=== PATIENT | female | born 1940 | race Caucasian/White ===

== ENCOUNTER 2021-02-15 16:02 | Emergency (ER) | payer MEDICARE, MEDICAID ==
[~2021-02-15] VITALS: Ht 160 cm; Wt 97.5 kg
[2021-02-15] MEDS ORDERED: METFORMIN HCL500 M3 PO (16:18)
[2021-02-15] MEDS ORDERED: HYDROCHLOROTH12.5 M1 PO (16:18)
[2021-02-15] MEDS ORDERED: NEURONTIN 300M300 M2 PO (16:18)
[2021-02-15] MEDS ORDERED: OMEPRAZOLE 20 M20 M1 PO (16:18)
[2021-02-15] MEDS ORDERED: LOTENSIN10 MG PO (16:19)
[2021-02-15] MEDS ORDERED: NAPROSYN500 M1 PO (16:19)
[2021-02-15 16:38] LABS: ABSOLUTE BASOPHILS 0.1 thou/uL (0.0-0.2); ABSOLUTE EOSINOPHILS 0.3 thou/uL (0.0-0.7); ABSOLUTE LYMPHOCYTES 1.8 thou/uL (0.8-5.3); ABSOLUTE MONOCYTES 0.8 thou/uL (0.0-1.2); ABSOLUTE NEUTROPHILS 4.4 thou/uL (1.6-8.1); BASOPHILS 0.8 %; EOSINOPHILS 4.3 %; HEMATOCRIT 42.1 % (37.0-47.0); HEMOGLOBIN 14.5 gm/dL (12.0-15.0); LYMPHOCYTES 24.4 %; MCH 31.1 pg (26.0-34.0); MCHC 34.4 g/dL (28.0-37.0); MCV 90.5 fL (80.0-100.0); MONOCYTES 10.4 %; MPV 7.3 fl. (7.2-11.1); NUCLEATED RBCS 0 /100WBC; PLATELET COUNT* 247 thou/uL (150-400); POLYS 60.1 %; RBC 4.66 mil/uL (4.20-5.00); RDW-CV 12.9 % (10.5-14.5); WBC 7.3 thou/uL (4.0-11.0)
[2021-02-15 16:48] LABS: CALCIUM 8.7 mg/dL (8.5-10.1); CREATININE 0.7 mg/dL (0.6-1.3); POTASSIUM 4.4 mmol/L (3.5-5.1)
[2021-02-15 16:59] LABS: ALBUMIN 3.5 g/dL (3.4-5.0); TOTAL BILIRUBIN 0.4 mg/dL (<0.1-1.0); TOTAL PROTEIN 7.6 g/dL (6.4-8.2)
[2021-02-15] MEDS ORDERED: ZPAK PO (18:36)
[2021-02-15] MEDS ORDERED: MEDROLDOSEPACK PO (18:36)
[2021-02-15] MEDS ORDERED: VENTOLIN HFA 1818 GM INH (18:36)
[2021-02-15 19:00] VITALS: BP 139/68
--- NOTE | 2021-02-16 11:47 | EKG ---
[place] [address] ELECTROCARDIOGRAM REPORT Name: ERIC GAVIN Room: [facility]#: [id number] Admission: 02/15/21 Attend Phys: Discharge: 02/15/21 Date of : 40 Date of Service: 02/15/21 1633 Report #: [id number] THIS REPORT FOR: //name// [facility] ED Test Date: 2021-02-15 Test Time: 16:33:57 Pat Name: ERIC GAVIN Department: Room: Gender: F Painter Decorator: : 1940 Requested By: Ashley Franco Order Number: [id number] MD: Sergio Pierre Measurements Intervals [place] Rate: 85 P: 68 TX: 149 QRS: 49 QRSD: 82 T: 53 QT: 368 QTc: 438 Interpretive Statements Sinus rhythm Inferior Q waves noted No previous ECG available for comparison Electronically Signed On 02-16-2021 11:46:52 CDT by Sergio Pierre [email or web address] <ELECTRONICALLY SIGNED> By: Sergio Pierre MD, [facility] 02/16/21 1146 1633 1633 Sergio Pierre MD, [facility] /EPI
== END 2021-02-15 19:00 | disposition home or self-care (01) ==
LOC: M.ERS 16:02
PROVIDERS: Nurse Practitioner Family
DX: J20.9 Acute bronchitis, unspecified (principal); Z20.822 Contact with and (suspected) exposure to COVID-19; E11.9 Type 2 diabetes mellitus without complications; I10 Essential (primary) hypertension; Z88.6 Allergy status to analgesic agent; Z88.5 Allergy status to narcotic agent; Z79.899 Other long term (current) drug therapy; Z90.49 Acquired absence of other specified parts of digestive tract; Z98.51 Tubal ligation status